=== PATIENT | female | born 2000 | race Two or more races ===

== ENCOUNTER 2021-05-06 14:12 | Emergency (ER) | payer MEDICAID, OTHER ==
[~2021-05-06] VITALS: Ht 149.9 cm; Wt 72.6 kg
[2021-05-06 14:19] VITALS: BP 141/98
== END 2021-05-06 15:36 | disposition left against medical advice (07) ==
LOC: ER 14:12
DX: M79.675 Pain in left toe(s) (principal); Z53.21 Procedure and treatment not carried out due to patient leaving prior to being seen by health care provider